=== PATIENT | male | born 1970 | race African-American/Black ===

== ENCOUNTER 2017-05-05 08:27 | Inpatient (IN) | payer OTHER ==
[~2017-05-05] VITALS: Ht 177.8 cm; Wt 86.2 kg
--- NOTE | ~2017-05-05 | EKG ---
[place] [address] [facility] [place] [address] ELECTROCARDIOGRAM REPORT Name: PERLA ARCEO Room #: 170-2 ADM IN M.R.#: [id number] Admission: 05/05/17 Attend Phys: Merrill Ghosh MD Discharge: Date of : 68 Report #: [id number] THIS REPORT FOR: //name// [facility] ED Test Date: 2017-05-05 Test Time: 11:04:02 Pat Name: PERLA ARCEO Department: Room: 170 Gender: M Friend Of The Court: MILES : 1970 Requested By: Erick Sunshine Order Number: [id number] MD: Sahil Randolph Measurements Intervals [place] Rate: 63 P: 70 LA: 176 QRS: 129 QRSD: 113 T: 8 QT: 484 QTc: 496 Interpretive Statements Sinus rhythm Poor R wave progression Nonspecific intraventricular conduction delay Compared to ECG 05/04/2012 11:18:49 Poor R wave progression is now present Electronically Signed On 05-05-2017 17:37:36 DROP PIT WORKER by Sahil Randolph [email or web address] <ELECTRONICALLY SIGNED> By: Sahil Randolph MD, [facility] 05/05/17 1737 1104 1104 Sahil Randolph MD, [facility] /EPI
--- NOTE | ~2017-05-05 | HC ---
[facility] [place] [address] CONSULTATION Name: PERLA ARCEO Room #: 427-P [facility] IN M.R.#: [id number] Admission: 05/05/17 Attend Phys: Merrill Ghosh MD Discharge: 05/06/17 Date of : 68 Report #: [id number] THIS REPORT FOR: //name// CC: Merrill Leigh REASON FOR CONSULTATION: End-stage renal disease. REASON FOR PRESENTATION: Shortness of breath. HISTORY OF PRESENT ILLNESS: This is a 46-year-old with past medical history of diabetes mellitus, hypertension, hyperlipidemia. He presented to the Emergency Room complaining of worsening lower extremity swelling and shortness of breath. He is a Tsxjffx-Mtfxhwln-Xqavfuyi dialysis patient who follows with [facility]. I have confirmed with his dialysis unit that he has an extreme noncompliance with medical care. On presentation to the Emergency Room, he was found to have an elevated blood pressure and hyperkalemia and was accordingly emergently dialyzed. I am being asked to manage his end-stage renal disease while in the hospital. PAST MEDICAL HISTORY: 1. Seizure disorder. 2. Schizophrenia. 3. Bipolar disorder. 4. Tobacco abuse. 5. Marijuana abuse. 6. Hypertension. 7. Diabetes mellitus. 8. End-stage renal disease, maintained on hemodialysis every Thursday, and Thursday. MEDICATIONS: 1. Depakote. 2. Clonidine. 3. Lisinopril. 4. Risperdal. 5. Demadex. 6. Insulin. 7. Amlodipine. 8. Aldactone. 9. Simvastatin. SOCIAL HISTORY: Significant for drug and alcohol abuse. FAMILY HISTORY: Hypertension. REVIEW OF SYSTEMS: [facility] [address] [place] [address] CONSULTATION Name: PERLA ARCEO Room #: 427-P [facility] IN M.R.#: [id number] Admission: 05/05/17 Attend Phys: Merrill Ghosh MD Discharge: 05/06/17 Date of : 68 Report #: [id number] GENERAL: Significant for weakness. PULMONARY: Significant for cough and shortness of breath. CARDIOVASCULAR: Significant for orthopnea and PND. GASTROINTESTINAL: No nausea or vomiting. GENITOURINARY: No frequency, no urgency. MUSCULOSKELETAL: Right shoulder pain. SKIN: No rash or ulcerations. Renally Fluid overload with bilateral lower extremities swelling with no improvement in the last couple of months. PHYSICAL EXAMINATION: GENERAL: Alert, oriented. VITAL SIGNS: Blood pressure 220/126. HEAD AND NECK: Elevated jugular venous pressure. CHEST: No crackles. CARDIOVASCULAR: No rub. ABDOMEN: Soft, nontender. EXTREMITIES: Extensive edema. LABORATORY DATA: Reviewed. Hemoglobin 8.8. Sodium 137, potassium 5.7, BUN 46, creatinine 5.9. Chest x-ray, pulmonary edema. IMPRESSION: 1. End-stage renal disease. 2. Pulmonary edema. 3. Hypertensive urgency. 4. Diabetes mellitus. 5. Hyperkalemia. 6. Extreme noncompliance with medical care. PLAN: 1. The patient received appropriate dialysis treatment yesterday with aggressive ultrafiltration; however, he became very belligerent while on the dialysis machine and was very abusive to my dialysis staff. 2. Continue his current other care aspects including blood pressure, blood sugar control. 3. I have communicated with his dialysis unit his issues and he is stable to catch up with his dialysis unit tomorrow. <ELECTRONICALLY SIGNED> By: João Duff MD 05/24/17 1703 0849 1833 João Duff MD /nt
[~2017-05-05 08:27] MED LIST: AMLODIPINE BESY10 MG PO; ASPIRIN EC325 M1 PO; ATORVASTATIN CA40 MG PO; CLONIDINE-TTS0.3 MG TRANSDERM; DEMADEX10 MG PO; DEPAKOTE500 MG PO; ESKALITH300 MG PO; HUMULIN N100 UNIT/1 SC; K-DUR 20 MEQ T20 MEQ PO; LANTUS SUBQ; LISINOPRIL PO; LISINOPRIL20 MG PO; LISINOPRIL40 MG PO; LITHATE5 MG; LOPRESSOR 50 MG50 M1 PO; MINIPRIN81 MG PO; NICOTINE TRANSD14 M1 TRANSDERM; NOVOLIN 70100 UNIT/5 SC; NOVOLIN R100 UNIT/1; NOVOLOG100 UNIT/1 SUBQ; PERCOCET 5-3251 EACH PO; RISPERDAL 1 MG T1 MG PO; SPIRONOLACTONE25 M1 PO; ZOCOR40 MG PO
[2017-05-05 08:56] VITALS: BP 227/117
[2017-05-05 09:36] LABS: ABSOLUTE NEUTROPHILS 8.6 thou/uL (1.4-8.2); EOSINOPHILS 0.5 % (0.0-3.0); HEMATOCRIT 30.5 % (42.0-52.0); HEMOGLOBIN 9.7 gm/dL (14.0-18.0); LYMPHOCYTES 11.7 % (24.0-44.0); MCH 28.1 pg (26.0-34.0); MCHC 31.8 g/dL (28.0-37.0); MCV 88.5 fL (80.0-100.0); MONOCYTES 4.3 % (1.0-8.0); PLATELET COUNT 506 thou/uL (150-400); POLYS 83.5 % (36.0-66.0); RBC 3.44 mil/uL (4.50-6.00); RDW 21.1 % (10.5-14.5); WBC 10.3 thou/uL (4.0-11.0)
[2017-05-05 09:43] LABS: ANION GAP 11 mmol/L (7-16); BUN 59 mg/dL (7-18); CHLORIDE 93 mmol/L (98-107); CO2 28 mmol/L (21-32); CREATININE 7.4 mg/dL (0.7-1.3); GLUCOSE 287 mg/dL (74-106); SODIUM 132 mmol/L (136-145)
[2017-05-05 09:49] LABS: POTASSIUM 7.9 mmol/L (3.5-5.1)
[2017-05-05 09:52] LABS: ALBUMIN 3.2 g/dL (3.4-5.0); MAGNESIUM 2.5 mg/dL (1.8-2.4); SGOT 90 U/L (15-37); SGPT 89 U/L (30-65); TOTAL PROTEIN 8.5 g/dL (6.4-8.2); TROPONIN-I < 0.04 ng/mL (<0.06)
[2017-05-05 12:04] LABS: TSH 2.197 uIU/mL (0.358-3.740)
[2017-05-05 19:11] LABS: GLYCOHEMOGLOBIN (HGB A1C) 9.8 % (4.8-5.6)
[2017-05-05 19:21] VITALS: BP 241/127
[2017-05-05 21:53] VITALS: BP 206/104
[2017-05-06 01:17] VITALS: BP 217/112
[2017-05-06 01:18] VITALS: BP 212/111
[2017-05-06 04:38] VITALS: BP 222/126
[2017-05-06 07:03] LABS: HEMATOCRIT 26.6 % (42.0-52.0); HEMOGLOBIN 8.8 gm/dL (14.0-18.0); MCH 29.1 pg (26.0-34.0); MCV 88.3 fL (80.0-100.0); RBC 3.01 mil/uL (4.50-6.00); RDW 21.1 % (10.5-14.5); WBC 10.5 thou/uL (4.0-11.0)
[2017-05-06 07:10] VITALS: BP 183/63; BP 208/122
[2017-05-06 07:17] LABS: ANION GAP 10 mmol/L (7-16); BUN 46 mg/dL (7-18); CALCIUM 9.1 mg/dL (8.5-10.1); CHLORIDE 94 mmol/L (98-107); CO2 30 mmol/L (21-32); GLUCOSE 283 mg/dL (74-106); MAGNESIUM 2.4 mg/dL (1.8-2.4); SGOT 60 U/L (15-37); SGPT 74 U/L (30-65); SODIUM 134 mmol/L (136-145); TOTAL BILIRUBIN 0.7 mg/dL (<0.1-1.0); TOTAL PROTEIN 8.2 g/dL (6.4-8.2)
[2017-05-06 07:21] LABS: CREATININE 5.9 mg/dL (0.7-1.3); POTASSIUM 5.7 mmol/L (3.5-5.1)
[2017-05-06 07:31] LABS: CHOLESTEROL 218 mg/dL (<200); HDL CHOLESTEROL 114 mg/dL (>40); LDL CHOLESTEROL 98 mg/dL (<100); TC:HDL 1.9 Ratio (Not establshd); TRIGLYCERIDE 30 mg/dL (<150); VLDL 6 mg/dL (<40)
[2017-05-06] MEDS ORDERED: AMBIEN 5 MG TABL5 M1 PO (09:14)
[2017-05-06 11:29] VITALS: BP 208/122
== END 2017-05-06 14:05 | disposition home or self-care (01) | DRG 682 ==
LOC: ER 08:27 → EROBS 10:21 → 4E 20:45
PROVIDERS: Emergency Medicine; Nurse Practitioner
PROC: 5A1D70Z Performance of Urinary Filtration, Intermittent, Less than 6 Hours Per Day (ICD-10-PCS; principal; 2017-05-05)
PROC: 5A1D70Z Performance of Urinary Filtration, Intermittent, Less than 6 Hours Per Day (ICD-10-PCS; 2017-05-06)
DX: I12.0 Hypertensive chronic kidney disease with stage 5 chronic kidney disease or end stage renal disease (principal); N18.6 End stage renal disease; I16.1 Hypertensive emergency; I16.0 Hypertensive urgency; E78.00 Pure hypercholesterolemia, unspecified; F20.9 Schizophrenia, unspecified; F31.9 Bipolar disorder, unspecified; E78.5 Hyperlipidemia, unspecified; E11.22 Type 2 diabetes mellitus with diabetic chronic kidney disease; G40.909 Epilepsy, unspecified, not intractable, without status epilepticus; E87.5 Hyperkalemia; F17.210 Nicotine dependence, cigarettes, uncomplicated; E87.70 Fluid overload, unspecified; E11.65 Type 2 diabetes mellitus with hyperglycemia; E11.42 Type 2 diabetes mellitus with diabetic polyneuropathy; M25.511 Pain in right shoulder; Z91.14 Patient's other noncompliance with medication regimen; Z99.2 Dependence on renal dialysis; Z79.82 Long term (current) use of aspirin; Z79.4 Long term (current) use of insulin; Z79.899 Other long term (current) drug therapy; Z82.49 Family history of ischemic heart disease and other diseases of the circulatory system
CPT/HCPCS: 10183; 32100

== ENCOUNTER 2017-11-08 23:01 | Inpatient (IN) | payer OTHER ==
[~2017-11-08] VITALS: Ht 172.7 cm; Wt 73.1 kg
--- NOTE | ~2017-11-08 | PATH ---
[facility] [address] [place] [place] [address] PATHOLOGY RPT PROCEDURE Name: PERLA ARCEO Room #: 422-P ADM IN M.R.#: [id number] Admission: 11/09/17 Date of : 68 Discharge: Report #: [id number] Path Case #: [id number] Note [facility] Accession Number: [id number] TESTS RESULT FLAG UNITS REF RANGE LAB Clinician Provided Cytology Information No. of containers..01 Other (Miscellaneous) Source: PLEURAL FLUID DIAGNOSIS: 02 PLEURAL FLUID NEGATIVE FOR MALIGNANT CELLS. REACTIVE MESOTHELIAL CELLS ARE PRESENT. THIS INTERPRETATION INCLUDES EVALUATION OF A CELL BLOCK. Signed out by: 02 Domi Mcbride MD, Pathologist NPI- [id number] Performed by: 03 Stephanie Messer, Flight Engineer Manager ([facility]) Gross description: 01 22ML, ORANGE, CLOUDY /LCS FLAG LEGEND: L-Low Normal,H-High Normal,LL-Alert Low,HH-Alert High <-Panic Low,>-Panic High,A-Abnormal,AA-Critical Abnormal Performed at: [address] [place] [address] Galdino Araiza MD, [address] [address] Domi Mcbride MD, [address] [address] Clemente Guerrero MD, Performed at: [address] [place] [address] [id number] MD Galdino Araiza MD Phone: [phone]
--- NOTE | ~2017-11-08 | HC ---
[facility] [place] [address] CONSULTATION Name: PERLA ARCEO Room #: 422-P [facility] IN M.R.#: [id number] Admission: 11/09/17 Attend Phys: Aries Hayden Discharge: 11/11/17 Date of : 68 Report #: [id number] THIS REPORT FOR: //name// CC: Elysia Hayden HISTORY OF PRESENT ILLNESS: This 47-year-old black male with known end-stage renal disease, who was admitted emergently with rectal bleeding. I have been asked to see by Dr. Perry in regards to adenopathy on his CAT scan and markedly elevated alkaline phosphatase level. The patient denies a prior history of malignancy. He himself is not detected any adenopathy. PAST MEDICAL HISTORY: In addition to his renal failure, is positive for medically managed hypertension, diabetes, prior seizure disorder, schizophrenia and tobacco and marijuana use. ALLERGIES: None known. MEDICATIONS: As listed on the MFR. He follows with Dr. Merchant for his hemodialysis. SOCIAL HISTORY: He denies drinking. He does smoke cigarettes. REVIEW OF SYSTEMS: Negative for sweats, chills and fevers. Unintended weight loss. Remaining system review is as in history of present illness. PHYSICAL EXAMINATION: GENERAL: Shows an alert black male. HEENT: Normocephalic. NECK: Supple. SKIN: Shows a factitial injury from pruritus with the scratching on his upper back and sparing of the mid back. ABDOMEN: Did not reveal any palpable spleen. EXTREMITIES: Show dialysis catheter. PSYCHIATRIC: He is not agitated. NEUROLOGICAL: No focal localizing signs. SKIN: Shows normal turgor. HOSPITAL COURSE: His CT scan was reviewed and also showed a moderate right-sided pleural effusion in addition to a diffuse small adenopathy. ASSESSMENT: Lymphadenopathy. PLAN: I was able to obtain records from Dr. Merchant showing that the alkaline phosphatase elevation has been steadily worsening over the last few months and [facility] [address] [place] [address] CONSULTATION Name: ADISPERLA STYLES Room #: 422-P [facility] IN M.R.#: [id number] Admission: 11/09/17 Attend Phys: Aries Hayden Discharge: 11/11/17 Date of : 68 Report #: [id number] is not new. This may be related to his underlying renal failure/hyperphosphatemia. In regard to his adenopathy and a pleural effusion, cytology has been obtained. If this is negative, could consider a lymph node biopsy. With his pruritus, it is possible that this disrupts underlying Hodgkin's disease though none of the nodes appears to be larger than 2 cm by my review. He plans to follow up with Dr. Merchant, but I am available to see again in the future if the need arise. Thanks for asking me to see him in consultation by allowing me to participate in his care. <ELECTRONICALLY SIGNED> By: Kirsten Murray MD 11/12/17 1528 1423 1929 MD shahnaz Skaggs
--- NOTE | ~2017-11-08 | HC ---
[facility] [place] [address] CONSULTATION Name: ADISPERLA STYLES Room #: 422-P ADM IN M.R.#: [id number] Admission: 11/09/17 Attend Phys: Aries Hayden Discharge: Date of : 68 Report #: [id number] THIS REPORT FOR: //name// CC: Elysia Hayden REASON FOR CONSULTATION: Chronic kidney disease. REASON FOR PRESENTATION: Rectal bleeding. HISTORY OF PRESENT ILLNESS: A 47-year-old who is well known to me. He has previous medical history of end-stage renal disease, GI bleeding, diabetes mellitus, bipolar disorder, schizophrenia. He dialyzes with [facility]. He is on dialysis every Thursday, and Thursday. Previously evaluated back in April of this year, and I confirmed with his dialysis unit that he has extreme noncompliance with medical care. He presented yesterday reporting that he had some hematochezia and was admitted for further evaluation and management. He previously had an EGD and a colonoscopy, but he is not really sure of the results of those tests. He denied any chest pain or shortness of breath; however, he wears oxygen 2-3 liters at baseline. He was found to have significant pleural effusion with what seems to be right lung airspace opacities. CT of the abdomen revealed lymph nodes. The patient was admitted for further evaluation and management. He tells me that he had a breast abscess few months ago. He still has some tenderness in the area, and he thinks the wound has healed while the gauze is inside, and he is requesting this to be evaluated. PAST MEDICAL HISTORY: 1. End-stage renal disease, maintained on hemodialysis with [facility] every Thursday, and Thursday. 2. Noncompliance. 3. Schizophrenia. 4. Bipolar disorder. 5. Substance abuse. 6. Hypertension. 7. Seizure disorder. SOCIAL HISTORY: Significant for drug and alcohol abuse. FAMILY HISTORY: Significant for hypertension. MEDICATIONS: Reported the followin. Depakote. 2. Clonidine. 3. Lisinopril. 4. Risperdal. 5. Torsemide. [facility] [address] [place] [address] CONSULTATION Name: PERLA ARCEO Room #: 422-P [facility] IN M.R.#: [id number] Admission: 11/09/17 Attend Phys: Aries Hayden Discharge: Date of : 68 Report #: [id number] 6. Spironolactone. 7. Simvastatin. ALLERGIES: No known drug allergies. REVIEW OF SYSTEMS: CONSTITUTIONAL: No fever or chills. CARDIOVASCULAR: Shortness of breath. PULMONARY: Significant for shortness of breath and cough. GASTROINTESTINAL: As per the history of present illness. GENITOURINARY: Still makes some urine. No frequency, no urgency. SKIN: Diffuse skin lesions on the trunk, chest wall, back. Right breast changes as described above. PHYSICAL EXAMINATION: GENERAL: He is alert, oriented, no apparent distress. VITAL SIGNS: Blood pressure is 91/48. HEAD AND NECK: No jugular venous distention. CHEST: Decreased air entry bilaterally. Right breast firm area of tenderness. There is a scar on the lateral aspect of his areola. This is a very well-healed scar. I could not really tell if there is a gauze in the area or not. ABDOMEN: Soft, nontender with no hepatosplenomegaly. LOWER EXTREMITIES: No edema, with intact peripheral pulses. This is much better as compared to his previous presentation. SKIN: Diffuse skin rash consistent with end-stage renal disease, hyperphosphatemic changes. This is present on his trunk and back. LABORATORY DATA: Reviewed. Alkaline phosphatase is significantly elevated. White blood cell count is 7.2, hemoglobin is 9. Platelet is 215. Abdominal CT reviewed, as stated above, lymph nodes in the inguinal region. Chest CT reviewed. Right middle and right lower lobe atelectasis versus pneumonitis with what seems to be right-sided pleural effusion. There are also significant axillary lymph nodes. ASSESSMENT, IMPRESSION AND PLAN: 1. End-stage renal disease. 2. Diabetes mellitus. 3. Hypertension. 4. Noncompliance. 5. Diffuse adenopathy. 6. Right-sided pleural effusion. 7. Right-sided pulmonary infiltrate. 8. Recent breast surgery for an abscess with continued issues, increased tenderness, increased firmness in the area, described by the patient as a [address] [address] CONSULTATION Name: PERLA ARCEO Room #: 422-P [facility] IN M.R.#: [id number] Admission: 11/09/17 Attend Phys: Aries Hayden Discharge: Date of : 68 Report #: [id number] forgotten gauze in a healed wound. 9. From the dialysis perspective, we will continue with the usual dialysis every Thursday, and Thursday. 10 Anemia and GI bleeding workup. 11. Resume his outpatient medication for his blood pressure, seizure, diabetes mellitus. 12. Obtain surgical consultation for the patient's breast symptoms. 13. Workup for his effusion. 14. Workup for his adenopathy. 15. Phosphorus binders. 16. Pneumonia coverage. 17. Follow cultures. 18. Obtain ID consultation. By: [id number] João Duff MD /nt
--- NOTE | ~2017-11-08 | HC ---
[facility] [place] [address] CONSULTATION Name: PERLA ARCEO Room #: 422-P [facility] IN M.R.#: [id number] Admission: 11/09/17 Attend Phys: Aries Hayden Discharge: 11/11/17 Date of : 68 Report #: [id number] THIS REPORT FOR: //name// CC: Elysia Hayden REFERRING PHYSICIAN: Dr. Ghosh. REASON FOR REFERRAL: Pleural effusion. HISTORY OF PRESENT ILLNESS: The patient is a 47-year-old -[place]ub[place] male who presents to the Emergency Room with rectal bleeding. CT abdomen and pelvis and chest showed moderate right pleural effusion. A pulmonary consultation was requested. The patient has multiple medical problems including end-stage renal disease, undergoing hemodialysis, hypertension, diabetes mellitus type 2, chronic anemia, bipolar disorder and schizophrenia. He states that he was in his usual state of health until 3 days prior to presentation when he started to notice rectal bleeding. Otherwise, denies any fever, night sweats or chills, chest pain, productive cough. Denies any dyspnea. Two days ago, he was seen at [facility] for nausea, vomiting, abdominal pain. He was told he had a stomach flu and was discharged. On presentation, he continues to have trouble with episodic nausea and vomiting. PAST MEDICAL HISTORY: As mentioned above, end-stage renal disease, undergoing hemodialysis. Status post right upper forearm AV fistula, chronic anemia, hypercholesterolemia, diabetes mellitus type 2, bipolar disorder, schizophrenia, neuropathy involving both feet, tobacco abuse, history of drug abuse including THC. PAST SURGICAL HISTORY: As mentioned above. ALLERGIES: None to medications. LISTED MEDICATIONS: Include Depakote, clonidine, insulin supplements, Zestril, Lopressor, nicotine patch, Risperdal, Demadex, potassium supplements, NovoLog, Aldactone, Zocor, aspirin. FAMILY HISTORY: Noncontributory. SOCIAL HISTORY: Notable for history of drug abuse along with alcohol abuse. [facility] [address] [address] CONSULTATION Name: ADISPERLA STYLES Room #: 422-P [facility] IN M.R.#: [id number] Admission: 11/09/17 Attend Phys: Aries Hayden Discharge: 11/11/17 Date of : 68 Report #: [id number] REVIEW OF SYSTEMS: As mentioned above, otherwise 10-point system review negative. PHYSICAL EXAMINATION: GENERAL: He is awake, alert, in no apparent distress. VITAL SIGNS: Temperature is 97 degrees Fahrenheit, pulse is 70, respiratory rate is 20, blood pressure is 110/65 mmHg, saturation 92% on room air. HEENT: Normocephalic, atraumatic. NECK: Supple, without any lymphadenopathy or thyromegaly. CHEST: Breath sounds decreased in the right base. Few scattered crackles. No wheezes. CARDIOVASCULAR: Normal S1, S2. No murmurs or gallop. There is no JVD. There is no carotid bruit. Pulses 2+/4+ bilaterally. ABDOMEN: Soft, nontender, no organomegaly or masses felt. GENITOURINARY: Deferred. RECTAL: Deferred. EXTREMITIES: There is no edema, cyanosis or clubbing. LABORATORY DATA: Echocardiogram per report shows a dilated right atrium, right ventricle. LV function appears to be grossly normal. Complete report is pending. CT chest revealed moderate right-sided pleural effusion, mild atelectasis, mild infiltrates are seen in the right lower lobe. Left lung field appears to be clear. Appears to be bilateral axillary lymph node enlargement. CT abdomen and pelvis is notable for moderate ascites. Otherwise, grossly unremarkable except for prominent lymph node involving the inguinal area. GTP and LDH moderately elevated. Electrolytes, creatinine 9.2, sodium 137, potassium 5.0, chloride 100, CO2 of 21, alkaline phosphatase 1200. Total bilirubin 3.5. Albumin 2.6. IMPRESSION: 1. Moderate right-sided pleural effusion in a 47-year-old -[place] male with multiple medical problems including end-stage renal disease along with apparent hematochezia. No complaints of recent febrile illness or productive cough. This may be related to transudative effusion, but cannot rule out pneumonia with parapneumonic effusion. I agree with thoracentesis. 2. Hematochezia, currently being evaluated by GI. 3. Elevated liver enzymes including alkaline phosphatase. The patient may need further imaging studies. Elevated total bilirubin. Probable alcoholic liver disease given history of alcohol abuse. 4. End-stage renal disease with mild metabolic acidosis, mild hyperkalemia. 5. Severe protein-calorie malnutrition, albumin 2.6. 6. Bipolar, schizoaffective disorder. 7. Inguinal adenopathy, bilateral axillary adenopathy, may need further evaluation once clinically stable. 8. Recent abdominal pain, nausea, vomiting, presumably viral in origin, but cannot rule out other processes given liver enzyme abnormalities. [facility] [address] [place] [address] CONSULTATION Name: PERLA ARCEO Room #: 330-P [facility] IN M.R.#: [id number] Admission: 11/09/17 Attend Phys: Aries Hayden Discharge: 11/11/17 Date of : 68 Report #: [id number] 9. Diabetes mellitus type 2. 10. Hypertension. 11. Neuropathy involving both feet. RECOMMENDATION: Agree with diagnostic thoracentesis. Pleural fluid should be sent for microbiology studies along with chemistry. Cytology should also be evaluated. Further recommendation pending pleural fluid analysis. I think it is reasonable to continue broad-spectrum antibiotics for possible pneumonia. Aspiration will be suspected. DVT and GI prophylaxis will be indicated. Thank you for this consultation. <ELECTRONICALLY SIGNED> By: Mario Ennis MD 11/11/17 1542 1144 1302 Mario Ennis MD /nt
--- NOTE | ~2017-11-08 | 2DMMODE ---
[facility] [address] [place] [address] 2 D/M-MODE ECHOCARDIOGRAM Name: ADISPERLAONY Room #: 422-P ADM IN M.R.#: [id number] Admission: 11/09/17 Attend Phys: Aries Mcbride Discharge: Date of : 68 Date of Service: 11/09/17 1212 Report #: [id number] THIS REPORT FOR: //name// APPROVED REPORT Study performed: 11/09/2017 10:53:15 EXAM: Comprehensive 2D, Doppler, and color-flow Echocardiogram Patient Location: Bedside Room #: 422 Status: routine BSA: 1.86 HR: 74 bpm BP: 109/68 mmHg Rhythm: NSR Other Information Study Quality: Excellent Risk Factors: Cardiac Risk Factors: HTN, Hyperlipidemia, DM, Smoking, SOB Indications COPD Pleural Effusion ESRD 2D Dimensions LVEF(%): 55.00 (>50%) IVSd: 14.24 (7-11mm) LVOT Diam: 21.00 (18-24mm) LVDd: 38.40 mm PWd: 16.92 (7-11mm) Ascending Ao: 27.23 (22-36mm) LVDs: 32.34 (25-40mm) Aortic Root: 28.28 mm LV Single Plane 4CH: 56.62 % LV Single Plane 2CH: 61.10 % Mills's LVEF: 58.86 % Biplane EF: 55.6 % Volumes Left Atrial Volume (Systole) Single Plane 4CH: 48.65 mL Single Plane 2CH: 54.67 mL LA ESV Index: 31.00 mL/m2 Aortic Valve [facility] [place] [address] 2 D/M-MODE ECHOCARDIOGRAM Name: PERLA ARCEO Room #: 422-P [facility] IN M.R.#: [id number] Admission: 11/09/17 Attend Phys: Aries Mcbried Discharge: Date of : 68 Date of Service: 11/09/17 1212 Report #: [id number] AoV Peak Dannie.: 1.30 m/s AO Peak Gr.: 6.74 mmHg LVOT Max P.36 mmHg LVOT Max V: 0.92 m/s IVETH Vmax: 2.34 cm2 Mitral Valve E/A Ratio: 1.3 MV Decel. Time: 254.96 ms MV E Max Dannie.: 1.02 m/s MV A Dannie.: 0.79 m/s MV PHT: 73.94 ms IVRT: 76.12 ms TDI E/Lateral E': 14.57 E/Medial E': 17.00 Medial E' Dannie.: 0.06 m/s Lateral E' Dannie.: 0.07 m/s Pulmonary Valve PV Peak Dannie.: 0.69 m/s PV Peak Gr.: 1.89 mmHg VT End Vmax: 1.08 m/s Pulmonary Vein P Vein S: 0.50 m/s P Vein A: 0.20 m/s P Vein D: 0.54 m/s P Vein A Dur.: 65.7 msec P Vein S/D Ratio: 0.93 Tricuspid Valve TR Peak Dannie.: 2.74 m/s RAP Estimate: 10.00 mmHg TR Peak Gr.: 29.93 mmHg PA Pressure: 40.00 mmHg Left Ventricle The left ventricle is normal size. There is normal LV segmental wall motion. Moderate to severe concentric left ventricular hypertrophy. Left ventricular systolic function is normal. The left ventricular ejection fraction is within the normal range. LVEF is 55-60%. Grade II - pseudonormal filling dynamics. Right Ventricle Right ventricle is dilated. Right ventricle is hypokinetic. Atria The left atrium size is normal. Right atrium is dilated. [facility] [address] [place] [address] 2 D/M-MODE ECHOCARDIOGRAM Name: PERLA ARCEO Room #: 422-P [facility] IN [facility].#: [id number] Admission: 11/09/17 Attend Phys: Aries Mcbride Discharge: Date of : 68 Date of Service: 11/09/17 1212 Report #: [id number] Aortic Valve The aortic valve is normal in structure. No aortic regurgitation is present. There is no aortic valvular stenosis. Mitral Valve There is mitral annular calcification. There is no mitral valve regurgitation noted. No evidence of mitral valve stenosis. Tricuspid Valve The tricuspid valve is normal in structure. Moderate tricuspid regurgitation. Pulmonary artery pressure is 40 mmHg. Pulmonic Valve The pulmonary valve is normal in structure. Mild to moderate pulmonic regurgitation. Great Vessels The aortic root is normal in size. IVC is dilated and collapses <50% with inspiration. Pericardium There is no pericardial effusion. <Conclusion> Left ventricular systolic function is normal. There is normal LV segmental wall motion. Moderate to severe concentric left ventricular hypertrophy. LVEF is 55-60%. Grade II - pseudonormal filling dynamics. Right ventricle is dilated and hypokinetic. The aortic valve is normal in structure. No aortic regurgitation or stenosis There is mitral annular calcification. No mitral valve regurgitation noted. Moderate tricuspid regurgitation. Pulmonary artery pressure is 40 mmHg. There is no pericardial effusion. <ELECTRONICALLY SIGNED> By: Sahil Randolph MD, FACC 11/09/17 121 11 11 Sahil Randolph MD, FACC /INF
[~2017-11-08 23:01] MED LIST changes: +AMBIEN 5 MG TABL5 M1 PO
[2017-11-08 23:02] VITALS: BP 114/72
[2017-11-09 01:50] LABS: HEMATOCRIT 27.6 % (42.0-52.0); MCH 24.3 pg (26.0-34.0); WBC 7.2 thou/uL (4.0-11.0)
[2017-11-09 01:52] LABS: ABSOLUTE NEUTROPHILS 5.7 thou/uL (1.4-8.2); BASOPHILS 1.6 % (0.0-2.0); EOSINOPHILS 1.2 % (0.0-3.0); LYMPHOCYTES 10.8 % (24.0-44.0); MCHC 32.7 g/dL (28.0-37.0); MCV 74.3 fL (80.0-100.0); MONOCYTES 7.6 % (1.0-8.0); PLATELET COUNT 215 thou/uL (150-400); POLYS 78.8 % (36.0-66.0); RBC 3.71 mil/uL (4.50-6.00); RDW 26.7 % (10.5-14.5)
[2017-11-09 01:57] LABS: CALCIUM 8.7 mg/dL (8.5-10.1); CREATININE 9.2 mg/dL (0.7-1.3)
[2017-11-09 02:12] LABS: ALBUMIN 2.6 g/dL (3.4-5.0); DIRECT BILIRUBIN 2.7 mg/dL (<0.1-0.3); TOTAL BILIRUBIN 3.5 mg/dL (<0.1-1.0); TOTAL PROTEIN 8.3 g/dL (6.4-8.2)
[2017-11-09 02:42] LABS: ANISOCYTOSIS 3+; MICROCYTES 1+
[2017-11-09 02:43] LABS: POLYCHROMASIA 1+; TARGET CELLS OCCASIONAL
[2017-11-09 04:23] VITALS: BP 107/60
[2017-11-09 05:00] VITALS: BP 80/60
[2017-11-09 06:00] VITALS: BP 91/48
[2017-11-09 08:02] VITALS: BP 109/65
[2017-11-09 09:36] LABS: APTT 27.4 Seconds (24.5-32.8); FIBRINOGEN 343.5 mg/dL (210-360); INR 1.1; PROTIME 11.3 Seconds (9.3-11.4)
[2017-11-09 09:39] LABS: GGTP 1040 U/L (15-85)
[2017-11-09 10:01] LABS: % SATURATION 20 % (20-39); IRON 38 ug/dL (65-175); TIBC 194 ug/dL (250-450)
[2017-11-09 10:14] LABS: TSH 2.945 uIU/mL (0.358-3.740)
[2017-11-09 14:45] LABS: CLARITY CLOUDY; COLOR DARK YELLOW; SOURCE RIGHT CHEST; TOTAL VOLUME 60 mL
[2017-11-09 16:52] LABS: BF MACROPHAGE 60; BF NEUTROPHILS 20; BF NUCLEATED CELLS 439; BF RBC 8078
[2017-11-09 19:20] VITALS: BP 119/81
[2017-11-10 04:11] LABS: HAV IgM AB (ANTI-HAV IgM) Negative (Negative); HEPATITIS B SURFACE AG Negative (Negative); HEPATITIS C VIRUS AB 0.2 (0.0-0.9)
[2017-11-10 04:11] LABS: HAV IgM AB (ANTI-HAV IgM) Negative (Negative); HEPATITIS B SURFACE AG Negative (Negative); HEPATITIS C VIRUS AB 0.2 (0.0-0.9)
[2017-11-10 04:30] VITALS: BP 156/92
[2017-11-10 07:30] VITALS: BP 181/107
[2017-11-10 08:25] LABS: HEMATOCRIT 28.6 % (42.0-52.0); HEMOGLOBIN 9.4 gm/dL (14.0-18.0); MCH 24.3 pg (26.0-34.0); MCHC 32.9 g/dL (28.0-37.0); MCV 73.8 fL (80.0-100.0); RBC 3.88 mil/uL (4.50-6.00); RDW 26.7 % (10.5-14.5); WBC 8.1 thou/uL (4.0-11.0)
[2017-11-10 09:55] LABS: ALBUMIN 2.8 g/dL (3.4-5.0); CALCIUM 8.8 mg/dL (8.5-10.1); DIRECT BILIRUBIN 3.2 mg/dL (<0.1-0.3); POTASSIUM 5.6 mmol/L (3.5-5.1); TOTAL BILIRUBIN 3.9 mg/dL (<0.1-1.0); TOTAL PROTEIN 8.2 g/dL (6.4-8.2)
[2017-11-10 10:00] LABS: CREATININE 7.4 mg/dL (0.7-1.3)
[2017-11-10 17:50] VITALS: BP 182/99
[2017-11-10 20:00] VITALS: BP 175/98
[2017-11-11 04:13] VITALS: BP 191/101
[2017-11-11 07:30] VITALS: BP 165/95
[2017-11-11] MEDS ORDERED: CEFUROXIME250 MG PO (09:27)
[2017-11-11] MEDS ORDERED: TRIPLE ANTIB28.35 GM TOP (09:28)
[2017-11-11] MEDS ORDERED: ANUSOL-HC25 MG RECTAL (09:32)
[2017-11-11 13:00] VITALS: BP 165/95
[2017-11-11 13:34] VITALS: BP 165/95
[2017-11-11 16:10] LABS: BODY FLUID ALBUMIN 2.2 g/dL (()); BODY FLUID AMYLASE 40 U/L (()); BODY FLUID GLUCOSE 82 mg/dL (()); BODY FLUID LDH 125 IU/L (()); BODY FLUID PROTEIN 4.5 g/dL (())
== END 2017-11-11 13:30 | disposition home or self-care (01) | DRG 193 ==
LOC: ER 23:01 → EROBS 11-09 02:42 → 4E 11-09 02:42
PROVIDERS: Emergency Medicine; Hospitalist; Internal Medicine Pulmonary Disease; Nurse Practitioner; Nurse Practitioner Family
PROC: 0W993ZZ Drainage of Right Pleural Cavity, Percutaneous Approach (ICD-10-PCS; principal; 2017-11-09)
PROC: 5A1D70Z Performance of Urinary Filtration, Intermittent, Less than 6 Hours Per Day (ICD-10-PCS; 2017-11-10)
DX: J18.9 Pneumonia, unspecified organism (principal); N18.6 End stage renal disease; E43 Unspecified severe protein-calorie malnutrition; J90 Pleural effusion, not elsewhere classified; K92.2 Gastrointestinal hemorrhage, unspecified; I12.0 Hypertensive chronic kidney disease with stage 5 chronic kidney disease or end stage renal disease; E78.00 Pure hypercholesterolemia, unspecified; F31.9 Bipolar disorder, unspecified; E11.40 Type 2 diabetes mellitus with diabetic neuropathy, unspecified; G40.909 Epilepsy, unspecified, not intractable, without status epilepticus; E11.22 Type 2 diabetes mellitus with diabetic chronic kidney disease; E87.5 Hyperkalemia; R59.0 Localized enlarged lymph nodes; F20.9 Schizophrenia, unspecified; R59.1 Generalized enlarged lymph nodes; J44.9 Chronic obstructive pulmonary disease, unspecified; E78.5 Hyperlipidemia, unspecified; F17.210 Nicotine dependence, cigarettes, uncomplicated; Z91.19 Patient's noncompliance with other medical treatment and regimen; Z82.49 Family history of ischemic heart disease and other diseases of the circulatory system; Z68.24 Body mass index [BMI] 24.0-24.9, adult; Z79.899 Other long term (current) drug therapy
CPT/HCPCS: 10183; 32100